=== PATIENT | male | born 1950 | race Caucasian/White ===

== ENCOUNTER 2019-11-28 10:11 | Emergency (ER) | payer OTHER ==
[~2019-11-28] VITALS: Ht 177.8 cm; Wt 81.6 kg
[2019-11-28] MEDS ORDERED: B-COMPLEX PLUS1 EACH PO (10:25)
[2019-11-28] MEDS ORDERED: METOPROLOL SUCC25 MG PO (10:25)
[2019-11-28] MEDS ORDERED: PRAVASTATIN SOD20 MG PO (10:25)
[2019-11-28] MEDS ORDERED: ZOLOFT100 MG PO (10:26)
[2019-11-28] MEDS ORDERED: ZESTRIL5 MG PO (10:26)
[2019-11-28] MEDS ORDERED: ZYLOPRIM300 MG PO (10:27)
[2019-11-28] MEDS ORDERED: NAPROXEN500 MG PO (12:42)
== END 2019-11-28 12:59 | disposition home or self-care (01) ==
LOC: ER 10:11
DX: S22.41XA Multiple fractures of ribs, right side, initial encounter for closed fracture (principal); W18.39XA Other fall on same level, initial encounter; Y93.89 Activity, other specified; Y92.89 Other specified places as the place of occurrence of the external cause; Y99.8 Other external cause status